=== PATIENT | female | born 1990 | race Caucasian/White ===

== ENCOUNTER 2020-11-14 11:14 | Emergency (ER) | payer BC, SELFPAY ==
[2020-11-14 11:16] VITALS: BP 125/70; PULSE 81; RESP 14; TEMP 37; O2SAT 99; BMI 21.9
--- NOTE | 2020-11-14 11:30 | PC.NURSE ---
Pts left vs right foot equally pale and cool.
--- NOTE | 2020-11-14 11:50 | ED_ITS ---
HPI - Extremity Problem General Chief complaint: Extremity Problem,Nontraumatic Stated complaint: blood clot symptoms in left leg and foot Time Seen by Provider: 11/14/20 11:29 Source: patient Mode of arrival: Ambulatory Limitations: no limitations History of Present Illness HPI Narrative: Patient is a 30-year-old female here for evaluation of tightness and soreness in her left lower extremity/left calf muscle. She recently did have a extended car ride. She also has recently recovering from a 2nd trimester spontaneous miscarriage. She stated that her initial workup following this shows that she has potentially positive for anti phospholipid syndrome. She has never had a blood clot in the past. No chest pain. No shortness of breath. Has not tried anything for her symptoms in the past. Related Data Allergies Allergy/AdvReac Type Severity Reaction Status Date / Time No Known Drug Allergies Allergy Verified 11/14/20 11:27 Review of Systems Constitutional Constitutional: Denies fever(s) Cardiovascular Cardiovascular: Denies chest pain and Denies dyspnea Respiratory Respiratory: Denies dyspnea Gastrointestinal Gastrointestinal: Denies abdominal pain Musculoskeletal Comments: Left leg pain Integumentary/Breasts Skin/Breast: Denies rash Neurologic Comments: Is having some tingling around all of her toes of the left foot Psychiatric Psychiatric: Reports system reviewed and no additional complaints, except as documented Hematologic/Lymphatic On Anticoagulants: No Allergic/Immunologic Allergic/Immunologic: Reports system reviewed and no additional complaints, except as documented Patient History Medical History Prior miscarriage with in second trimester, antepartum Social History Smoking Status: Unknown if ever smoked Smoking Status: Unknown if ever smoked alcohol intake frequency: holidays/special occasions only Substance Use Type: does not use Exam Initial Vital Signs Initial Vital Signs: Vital Signs Temperature 98.6 F 11/14/20 11:16 Pulse Rate 81 11/14/20 11:16 Respiratory Rate 14 11/14/20 11:16 Blood Pressure 125/70 11/14/20 11:16 Pulse Oximetry 99 11/14/20 11:16 Const General: cooperative and comfortable Limitations: mental status not altered HENMT Head: normal to inspection and normocephalic Resp Effort & Inspection: normal respiratory effort Auscultation: clear to auscultation bilaterally Cardio Rate: regular rate Rhythm: regular rhythm Pulses: dorsalis pedis present bilaterally Skin Lesions: no lesions Rashes: no rashes Neuro General: patient alert and patient awake Cognition: normal cognition Speech: speech normal Extrem General: capillary refill normal Other: Minimal if any swelling to the left lower extremity. Does have some discomfort to the left calf muscle. Psych Appearance: grossly normal and well kempt Course Orders Ordered: ED Orders 11/14/20 11:51 US periph venous low extrem lt Stat Vital Signs Vital signs: Vital Signs - 8 hr 11/14/20 11:16 11/14/20 12:40 Temperature 98.6 F Pulse Rate 81 65 Respiratory Rate 14 18 Blood Pressure 125/70 125/72 Pulse Oximetry 99 100 MDM - Extremity (Nontraumatic) Imaging Data US - DVT: Radiologist's Impression: [address] [id number] ReportSigned Patient: Vani AnsariMR#: [id number]: [id number]:[id number]/Sex: 30 / FDate of Service: 11/14/20Loc: EDAccession Number: [id number] Procedure: US perip venous low extrem lt Ordering Provider: Varinder Mauricio D.O. PROCEDURE: US PERIPH VENOUS LOW EXTREM LT INDICATIONS: PAIN TECHNIQUE: Real-time imaging, as well as color and pulse Doppler interrogation, were performed of the lower extremity deep veins from the inguinal ligament to the popliteal fossa. COMPARISON: None. FINDINGS: The common femoral, femoral and popliteal veins are normally breana sible, and free of intraluminal thrombus. Color and pulse Doppler demonstrate normal phasic intraluminal flow. There is normal augmentation response to distal compression maneuver. IMPRESSION: Negative for deep venous thrombosis. Dictated by: Maynor Fernandez M.D. on 11/14/2020 at 11:19 Approved by: Maynor Fernandez M.D. on 11/14/2020 at 11:19 [facility] Narrative Medical decision making narrative: There is no signs of infection. No trauma. Low suspicion for fracture. Compartments are soft. Ultrasound negative for DVT. She is vascularly intact. Unsure of the cause of the tingling around the toes of her left foot. This does not fit any specific neurologic distribution. I feel we can hold on further workup for now. She was given return precautions. She expressed understanding and agreement. Discharge Plan Departure Patient Disposition: Home Clinical Impression: Left leg paresthesias, Left leg pain Instructions: DI for Numbness/Tingling Activity Restrictions/Additional Instructions: There were no signs of any blood clots today. Is also no signs of any infections. You have no restrictions on your activities. Contact your primary provider for follow-up. Return to the emergency department for any new or worsening symptoms
[2020-11-14 12:40] VITALS: BP 125/72; PULSE 65; RESP 18; O2SAT 100
== END 2020-11-14 12:55 | disposition home or self-care (01) ==
PROVIDERS: Emergency Provider Emergency Medicine
DX: M79.605 Pain in left leg (principal); R20.2 Paresthesia of skin
CPT/HCPCS: 93971; 99283